=== PATIENT | male | born 1970 | race Caucasian/White ===

== ENCOUNTER 2016-08-04 01:41 | Emergency (ER) | payer MEDICAID ==
[2016-08-04] MEDS ORDERED: OLANZapine 10 MG/2 ML VIAL IM ONE ×4 (01:59→07:46)
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
[2016-08-04 02:52] LABS: % IMMATURE GRANULYOCYTES 0.3 % (0.0-1.1); ABSOLUTE IMMATURE GRANULOCYTES 0.03 10^3/uL (0.00-0.10); ADD DIFF? NO; ADD MORPH? NO; ANION GAP 13 mEq/L (8-16); ATYPICAL LYMPHOCYTE FLAG 10 (0-99); CALCIUM 9.9 mg/dL (8.5-10.4); CARBON DIOXIDE 20 mEq/l (22-31); CHLORIDE 108 mEq/L (97-110); CREATININE 0.9 mg/dL (0.7-1.3); ETHANOL SERUM < 10 mg/dL (0-10); FRAGMENT RBC FLAG 0 (0-99); GLOMERULAR FILTRATION RATE > 60; GLUCOSE 105 mg/dL (70-100); HEMATOCRIT 46.1 % (40.0-51.0); LEFT SHIFT FLG 0 (0-99); LIPEMIA HEMOLYSIS FLAG 90 (0-99); MEAN CELL HEMOGLOBIN 30.9 pg (27.9-34.1); MEAN CELL HEMOGLOBIN CONCENTR. 34.7 g/dL (32.4-36.7); MEAN PLATELET VOLUME 10.6 fL (8.7-11.7); PLATELET COUNT 238 10^3/uL (150-400); POTASSIUM 4.5 mEq/L (3.5-5.2); RED BLOOD CELL COUNT 5.18 10^6/uL (4.40-6.38); RED CELL DISTRIBUTION WIDTH 13.1 % (11.5-15.2); SODIUM 141 mEq/L (134-144)
[2016-08-04 02:54] LABS: ADD SCAN? NO; PLATELET CLUMPS FLAG 10 (0-99)
[2016-08-04] MEDS ORDERED: LORazepam 2 MG/ML INJ IM ONE (12:41)
[2016-08-04] MEDS ORDERED: LORazepam 1 MG TAB ONE (21:32)
[2016-08-04] MEDS ORDERED: LORazepam 1 MG TAB PO ONE (21:47)
[2016-08-05] MEDS ORDERED: OLANZapine DISINTEGR 10 MG TAB ONE (07:04)
[2016-08-05] MEDS ORDERED: OLANZapine DISINTEGR 10 MG TAB PO ONE (07:05)
[2016-08-05] MEDS ORDERED: CEPACOL LOZENGE PO ONE ×2 (09:09→09:13)
[2016-08-05] MEDS ORDERED: LORazepam 1 MG TAB ONE (10:37)
[2016-08-05] MEDS ORDERED: LORazepam 1 MG TAB PO ONE (10:41)
[2016-08-05 10:43] VITALS: BP 165/108; PULSE 110; RESP 20; TEMP 98.2; O2SAT 99
== END 2016-08-05 10:43 ==
DX: F31.2 Bipolar disorder, current episode manic severe with psychotic features (principal)
CPT/HCPCS: 80305; G0480; J2060

== ENCOUNTER 2016-10-01 23:43 | Emergency (ER) | payer MEDICAID ==
--- NOTE | 2016-10-01 23:51 | EDPHY ---
H & P Stated Complaint: psych eval, clearance for [facility] [employer] Source: Patient - Personal History Current Tetanus/Diphtheria Vaccine: Unsure Current Tetanus Diphtheria and Acellular Pertussis (TDAP): Unsure - Medical/Surgical History Hx Asthma: No Hx Chronic Respiratory Disease: No Hx Diabetes: No Hx Cardiac Disease: No Hx Renal Disease: No Hx Cirrhosis: No Hx Alcoholism: No Hx HIV/AIDS: No Hx Splenectomy or Spleen Trauma: No Other PMH: bipolar disorder, hep C - Social History Smoking Status: Never smoked HPI/ROS: HPI CHIEF COMPLAINT: Paranoia HISTORY OF PRESENT ILLNESS: This patient 45-year-old male significant past medical history for bipolar disorder, presents emergency room after states that he want to get into the [employer]. Made Contact with police, states he wanted to go to [facility]. He states the pictures on the canales were bothering him. States he sees [place]. Patient presents by police he is not on M1 hold. He states the people are following him. Denies wanting to hurt himself or anybody else. States he is compliant with his medication. Patient denies wanting to hurt himself or anybody else. Past Medical History: Bipolar disorder Past Surgical History: No recent surgical history Social History: Denies daily use of drugs alcohol tobacco products lives at [facility] Family History: Noncontributory ROS REVIEW OF SYSTEMS: A comprehensive 10 point review of systems is otherwise negative aside from elements mentioned in the history of present illness. Exam Constitutional triage nursing summary reviewed, vital signs reviewed, awake/ alert. Eyes normal conjunctivae and sclera, EOMI, PERRLA. HENT normal inspection, atraumatic, moist mucus membranes, no epistaxis, neck supple/ no meningismus, no raccoon eyes. Respiratory clear to auscultation bilaterally, normal breath sounds, no respiratory distress, no wheezing. Cardiovascular rate normal, regular rhythm, no murmur, no edema, distal pulses normal. Gastrointestinal soft, non-tender, no rebound, no guarding, normal bowel sounds, no distension, no pulsatile mass. Genitourinary no CVA tenderness. Musculoskeletal no midline vertebral tenderness, full range of motion, no calf swelling, no tenderness of extremities, no meningismus, good pulses, neurovascularly intact. Skin pink, warm, & dry, no rash, skin atraumatic. Neurologic awake, alert and oriented x 3, AAOx3, moves all 4 extremities equally, motor intact, sensory intact, CN II-XII intact, normal cerebellar, normal vision, normal speech. Psychiatric paranoid, acutely psychotic Heme/Lymph/Immune no lymphadenopathy. Differential Diagnosis: Includes but is not limited to in a particular order, decompensation of bipolar disorder, acute wendy, acute psychosis Medical Decision Making: Plan for this patient blood draw for medical clearance. He is Voluntary and would like to go to [facility]. . 10 mg of Zyprexa as been ordered for acute psychosis. Check lithium level. Re-evaluation: 0137AM: This patient is sleepy. Unable to be fully evaluated as he keeps falling asleep during evaluation. Patient need re-evaluation this morning. He will sleep as he had 10 mg of Zyprexa at this time for acute psychosis. 0641AM: Patient slept most of the evening due to Zyprexa. Still need mental health evaluation. Patient, at this time. Patient signed over to Dr. Tolentino at 7am shift change. (Alan Herrera) Constitutional: Initial Vital Signs Temperature (C) 36.8 C 10/01/16 23:45 Heart Rate 99 10/01/16 23:45 Respiratory Rate 20 10/01/16 23:45 Blood Pressure 132/79 H 10/01/16 23:45 O2 Sat (%) 96 10/01/16 23:45 O2 Delivery Mode Room Air Allergies/Adverse Reactions: No Known Allergies Allergy (Unverified 08/04/16 02:16) Home Medications: Medication Instructions Recorded Multivitamins [Multivitamin (*)] 1 each PO DAILY 09/14/13 [place]-3 Fatty Acids [Fish Oil 1000 1,000 mg PO DAILY 09/14/13 mg (*)] ARIPIPRAZOLE [Abilify 30mg] 30 mg PO DAILY 10/01/16 [place] Carbonate ER [Eskalith Cr 900 mg PO BID 10/02/16 450 mg (*)] Medical Decision Making Other Provider: I assumed care of the patient at 3:30 p.m. pending psychiatric evaluation. ( Torrey Diallo) I assumed care of this patient from Dr. Herrera at 7:00 a.m.. On my evaluation he is eating breakfast. He remains somewhat sleepy. He will have a an evaluation at 8:00 a.m. by [facility]. Patient placed on a 72 hour mental health hold (gravely disabled) at 10:15 a.m. Patient's usual medications of lithium and Abilify were started. Patient's care was assumed by Dr. [place] Diallo at 3:30 p.m.. We are in the process of looking for placement. (Sheree Tolentino) Care assumed 700 on 10/03; plan for psych placement. Signed out to [facility] at 1500 with placement pending. (Geoffrey Briggs) - Data Points Laboratory Results: Laboratory Results 10/02/16 00:15 10/02/16 00:15 Medications Given: Discontinued Medications Olanzapine (Olanzapine) 10 mg PO ONCE ONE Stop: 10/01/16 23:57 Last Admin: 10/02/16 00:20 Dose: Not Given Olanzapine (Zyprexa Zydis) 10 mg PO EDNOW ONE Stop: 10/02/16 00:10 Last Admin: 10/02/16 00:09 Dose: 10 mg Departure - Departure Disposition: Other Psych, Not [place] Clinical Impression: Bipolar disorder Qualifiers: Active/Remission status: currently active Current bipolar episode type: manic Current episode severity: mild Qualified Code(s): F31.11 - Bipolar disorder, current episode manic without psychotic features, mild Condition: Good Instructions: Bipolar Disorder (ED) Referrals: NONE *PRIMARY CARE P,. [Primary Care Provider] - As per Instructions Carole Davis MD [[facility]] - As per Instructions
[2016-10-01] MEDS ORDERED: OLANZapine 10 MG TAB PO ONE (23:56)
[2016-10-02] MEDS ORDERED: OLANZapine DISINTEGR 10 MG TAB ONE
[2016-10-02] MEDS ORDERED: OLANZapine DISINTEGR 10 MG TAB PO ONE (00:09)
[2016-10-02 00:21] LABS: % IMMATURE GRANULYOCYTES 0.3 % (0.0-1.1); ABSOLUTE IMMATURE GRANULOCYTES 0.03 10^3/uL (0.00-0.10); ADD DIFF? NO; ADD MORPH? NO; ADD SCAN? NO; ATYPICAL LYMPHOCYTE FLAG 0 (0-99); FRAGMENT RBC FLAG 0 (0-99); HEMATOCRIT 42.4 % (40.0-51.0); HEMOGLOBIN 14.3 g/dL (13.7-17.5); LEFT SHIFT FLG 0 (0-99); LIPEMIA HEMOLYSIS FLAG 80 (0-99); MEAN CELL HEMOGLOBIN 31.6 pg (27.9-34.1); MEAN CELL HEMOGLOBIN CONCENTR. 33.7 g/dL (32.4-36.7); MEAN CELL VOLUME 93.8 fL (81.5-99.8); MEAN PLATELET VOLUME 8.7 fL (8.7-11.7); PLATELET CLUMPS FLAG 0 (0-99); PLATELET COUNT 257 10^3/uL (150-400); RED BLOOD CELL COUNT 4.52 10^6/uL (4.40-6.38); RED CELL DISTRIBUTION WIDTH 14.1 % (11.5-15.2)
[2016-10-02 00:43] LABS: ANION GAP 11 mEq/L (8-16); CARBON DIOXIDE 22 mEq/l (22-31); CHLORIDE 108 mEq/L (97-110); CREATININE 0.9 mg/dL (0.7-1.3); ETHANOL SERUM < 10 mg/dL (0-10); GLOMERULAR FILTRATION RATE > 60; GLUCOSE 96 mg/dL (70-100); LITHIUM 0.5 mEq/L (0.6-1.2); SALICYLATE < 1.0 mg/dL (2.0-20.0); SODIUM 141 mEq/L (134-144)
[2016-10-02] MEDS: ARIPiprazole 10 MG TAB PO SCH (10:59)
[2016-10-02] MEDS: LITHIUM CARBONATE ER 450 MG TAB PO SCH ×2 (11:00→21:22)
[2016-10-03] MEDS: ARIPiprazole 10 MG TAB PO SCH (09:05)
[2016-10-03] MEDS: LITHIUM CARBONATE ER 450 MG TAB PO SCH (09:05)
[2016-10-03 19:41] VITALS: BP 135/82; PULSE 81; RESP 17; TEMP 98.8; O2SAT 96
== END 2016-10-03 19:40 ==
DX: F31.11 Bipolar disorder, current episode manic without psychotic features, mild (principal)
CPT/HCPCS: 80305; G0480

== ENCOUNTER 2017-01-09 13:12 | Inpatient (IN) | payer MEDICAID ==
[2017-01-09 14:22] LABS: % IMMATURE GRANULYOCYTES 0.2 % (0.0-1.1); ABSOLUTE IMMATURE GRANULOCYTES 0.01 10^3/uL (0.00-0.10); ADD DIFF? NO; ADD MORPH? NO; ADD SCAN? NO; ATYPICAL LYMPHOCYTE FLAG 10 (0-99); FRAGMENT RBC FLAG 0 (0-99); HEMATOCRIT 41.7 % (40.0-51.0); HEMOGLOBIN 13.9 g/dL (13.7-17.5); LEFT SHIFT FLG 0 (0-99); LIPEMIA HEMOLYSIS FLAG 80 (0-99); MEAN CELL HEMOGLOBIN 30.8 pg (27.9-34.1); MEAN CELL HEMOGLOBIN CONCENTR. 33.3 g/dL (32.4-36.7); MEAN CELL VOLUME 92.5 fL (81.5-99.8); MEAN PLATELET VOLUME 9.2 fL (8.7-11.7); PLATELET CLUMPS FLAG 0 (0-99); PLATELET COUNT 272 10^3/uL (150-400); RED BLOOD CELL COUNT 4.51 10^6/uL (4.40-6.38); RED CELL DISTRIBUTION WIDTH 12.8 % (11.5-15.2)
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
[2017-01-09 14:40] LABS: ANION GAP 11 mEq/L (8-16); CALCIUM 9.5 mg/dL (8.5-10.4); CARBON DIOXIDE 28 mEq/l (22-31); CHLORIDE 105 mEq/L (97-110); CREATININE 0.8 mg/dL (0.7-1.3); ETHANOL SERUM < 10 mg/dL (0-10); GLOMERULAR FILTRATION RATE > 60; GLUCOSE 77 mg/dL (70-100); POTASSIUM 4.2 mEq/L (3.5-5.2); SODIUM 144 mEq/L (134-144)
[2017-01-09] MEDS ORDERED: KETOROLAC 30 MG/1 ML SDV IVP PRN (16:36)
[2017-01-09] MEDS ORDERED: ONDANSETRON 4 MG/2 ML VIAL IVP PRN (16:36)
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
[2017-01-09] MEDS ORDERED: BACITRACIN OINTMENT 1 PACKET TP ONE (17:46)
[2017-01-09] MEDS: LITHIUM CARBONATE ER 450 MG TAB PO SCH (20:18)
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
[2017-01-10 06:11] LABS: % IMMATURE GRANULYOCYTES 0.3 % (0.0-1.1); ABSOLUTE IMMATURE GRANULOCYTES 0.02 10^3/uL (0.00-0.10); ADD DIFF? NO; ADD MORPH? NO; ADD SCAN? NO; ATYPICAL LYMPHOCYTE FLAG 10 (0-99); FRAGMENT RBC FLAG 0 (0-99); HEMATOCRIT 40.2 % (40.0-51.0); HEMOGLOBIN 13.6 g/dL (13.7-17.5); LEFT SHIFT FLG 0 (0-99); LIPEMIA HEMOLYSIS FLAG 90 (0-99); MEAN CELL HEMOGLOBIN 30.9 pg (27.9-34.1); MEAN CELL HEMOGLOBIN CONCENTR. 33.8 g/dL (32.4-36.7); MEAN CELL VOLUME 91.4 fL (81.5-99.8); MEAN PLATELET VOLUME 8.9 fL (8.7-11.7); PLATELET CLUMPS FLAG 0 (0-99); PLATELET COUNT 245 10^3/uL (150-400); RED CELL DISTRIBUTION WIDTH 12.5 % (11.5-15.2)
[2017-01-10 06:20] LABS: INR 0.99 (0.83-1.16)
[2017-01-10 06:28] LABS: ALANINE AMINOTRANSFERASE 49 IU/L (21-72); ALBUMIN 3.7 g/dL (3.5-5.0); ALKALINE PHOSPHATASE 52 IU/L (38-126); ASPARTATE AMINOTRANSFERASE 20 IU/L (17-59); BILIRUBIN,TOTAL 0.3 mg/dL (0.1-1.4); BILIRUBIN-CONJUGATED 0.2 mg/dL (0.0-0.5); BILIRUBIN-UNCONJUGATED 0.1 mg/dL (0.0-1.1); LITHIUM 0.4 mEq/L (0.6-1.2); TOTAL PROTEIN 6.7 g/dL (6.3-8.2)
--- NOTE | 2017-01-10 09:28 | SOAPPROG ---
SOAP Progress Note Assessment/Plan: Assessment: Right ankle Avulsion distal fibula fracture & Cellulitis Plan: [place] for ambulation WBAT RLE in [place] Pain med prn Antibiotics per primary team Ortho Stable Subjective: Patient is comfortable in bed. Right ankle erythema is improving slightly. Minimal pain in the right ankle lateral malleolus. Objective: Vital Signs Temp Pulse Resp BP Pulse Ox 36.7 C 92 17 154/87 H 95 01/10/17 00:00 01/10/17 00:00 01/10/17 00:00 01/10/17 00:00 01/10/17 00:00 Laboratory Results 01/10/17 06:05 01/09/17 01/10/17 01/11/17 05:59 05:59 05:59 Intake Total 2450 Output Total 4725 Balance -2275 PT 13.0 SEC (12.0-15.0) 01/10/17 06:05 INR 0.99 (0.83-1.16) 01/10/17 06:05 Physical exam of the Right ankle: swelling and erythema throughout the right foot/ankle and up the calf is slightly improving. Pain to palpation over the lateral malleolus. Normal sensation to light touch in the RLE. Distal pulse present in the RLE. ICD10 Worksheet Patient Problems: Problems Problem Status Onset Avulsion fracture of ankle Acute Bipolar 1 disorder Acute Cellulitis of right ankle Acute
[2017-01-10] MEDS: ENOXAPARIN 40 MG/0.4 ML SYR SC SCH (09:35)
[2017-01-10] MEDS: LITHIUM CARBONATE ER 450 MG TAB PO SCH ×2 (09:35→19:30)
[2017-01-10] MEDS: ARIPiprazole 10 MG TAB PO SCH (09:35)
--- NOTE | 2017-01-10 10:39 | WOCRNPDOC ---
WOCRN Advanced Assessment Note - Skin Integrity Problem, Advanced Assess Right Lateral Distal Ankle Dressing Type: Open to Air Exudate Amount: None Gabi Wound Tissue: Erythema, Contused Wound Bed Color: [place], Yellow, [place] Wound Bed Constitution: Smooth Tissue (50%), Adhered Slough (50%) Wound Edges: Attached Site Measurement - Head-to-Toe Length X Width X Depth (cm): 3.5x2x0.2 Skin Integrity Problem Comment: Two wounds that are almost connected in the middle. The measurement is for both wounds together. They are both dry and somewhat stalled in their proliferation phase. Wound care will round again next week. Bilateral Pedal Foot Dressing Type: Open to Air Skin Integrity Problem Comment: Two old blister sites that are mostly healed and epithelized. One below third toe on left foot, one below 1st toe on right foot. Both on metatarsal heads. No need for wound care. Wound care will not follow. Report to Fanta RODRIGES.
--- NOTE | 2017-01-10 11:57 | GCON ---
[f rep st] CONSULTATION LICENSING SERVICES CLERK CONSULTATION REASON FOR ADMISSION: Cellulitis, bipolar disorder. HISTORY OF PRESENT ILLNESS: The patient is a 46-year-old, white male with a past medical history of bipolar disorder, and hepatitis C. He has been off his medications for 2 weeks and presented to [facility] emergency room complaining of hearing voices as well as paranoia. He apparently sprained his ankl e 1 week prior and the morning of admission, he noticed that this began having increasing swell and beginning chills. He was admitted with a diagnosis of cellulitis as well as poorly controlled bipol ar disorder and . He states he feels somewhat better today, though he did not sleep well l ast night secondary to hearing voices. His right ankle is painful to move. He denies any chest deb n, pleuritic-type chest pain or angina equivalent. No fever or night sweats. He is about to work w [employer]. PAST MEDICAL HISTORY: Significant for poorly controlled bipolar disorder and hepatitis C. ALLERGIES: None known to medications. SOCIAL HISTORY: No history of tobacco use. He denies any alcohol use. He is homeless and currentl y unemployed. PHYSICAL EXAM: VITAL SIGNS: Blood pressure is 154/87, pulse 109, respirations are 17, temperature 36.7. GENERAL: He is a well-developed, well-nourished, 46-year-old, white male who is currently re sting comfortably in no acute distress. HEENT: Eyes are JONATHAN, EOMI. Throat shows no erythema or t onsillar hypertrophy. NECK: Supple. No cervical adenopathy. HEART: Regular rate and rhythm with out murmurs, rubs, or gallops. LUNGS: Clear to auscultation. No wheeze or rhonchi. ABDOMEN: Sof t, nontender. Bowel sounds are present in all 4 quadrants. EXTREMITIES: No clubbing, cyanosis. H is right ankle is splinted and bandaged. LABORATORIES: White count 6.1, hemoglobin 13, hematocrit 40, platelet count 245. Sodium is 144, po tassium 4.2, chloride 105, CO2 28, BUN 11, creatinine 0.8, glucose 77, AST is 20, ALT is 49. Urine drug screen is negative. IMPRESSION: 1. Poorly controlled bipolar disorder. 2. Acute tib-fib avulsion fracture. 3. Cellulitis. RECOMMENDATIONS: 1. Agree with antibiotic coverage. 2. Agree with M1 hold. 3. The patient has been seen by Orthopedic surgery, which we have recommend a Cam boot for ambulati on. 4. DVT and PE prophylaxis. 5. Stress ulcer prophylaxis. 6. Physical therapy and occupational therapy. /[id number]/MODL
[2017-01-10] MEDS: CEPHALEXIN 500 MG CAP PO SCH ×2 (12:33→17:12)
--- NOTE | 2017-01-10 17:42 | HOSPPROG ---
Hospitalist Progress Note Assessment/Plan: assessment: 46-year-old male presents with acute D stabilization of his bipolar disease as well as concomitant cellulitis and fibula fracture Plan: 1. cellulitis. Right lower extremity, secondary to poor self care in the setting of the stabilized psychiatric illness, required IV Ancef - area is significantly improving, white blood cell count normal, afebrile, adjust to Keflex at this time for total of 7 days treatment 2. fibular fracture. Acute distal tip avulsion fracture on x-ray, ultrasound demonstrating no DVT, evaluated by Orthopedics, recommendation for weight- bearing as tolerated with a Cam boot when out of bed - recommend outpatient follow-up with Dr. Vang - yamileth kay as needed 3. bipolar disease. Acute decompensation, secondary to medication non adherence , patient has a history of court-ordered medication administration - patient reports that he has recently been on a "walk about", at which time he was not taking his medications - patient denies any suicidal ideation or homicidal ideation, but he does demonstrate a delusional thinking and active psychosis, believing that there are people speaking through his body -I believe he remains gravely disabled, currently on M1 hold -patient has been medically cleared and I contacted [facility] to facilitate EPS evaluation, facilitating inpatient psychiatric stabilization if deemed appropriate -patient can be discharged to inpatient psychiatric facility once 1 is available -resume the patient's medications including Abilify and lithium, patient is amenable to taking them Diet. Regular Prophylaxis. High risk, Lovenox 40 Code. Full Disposition. Anticipated discharge uncertain this time, anticipated length stay is greater than 48 hours warranting inpatient admission status for acutely decompensated bipolar disease rendering the patient gravely disabled and unable to care for self, with comorbid cellulitis and fibular fractures, resulting in hospitalization, currently does not have safe discharge plan or lower level of care available, Requiring upgraded to inpatient admission status. Subjective: Patient reports that he feels like people are speaking through him, counseled the patient that he requires inpatient Behavioral Health stabilization , and patient is cooperative Objective: Vital Signs Temp Pulse Resp BP Pulse Ox 36.8 C 69 14 147/87 H 96 01/10/17 16:00 01/10/17 16:00 01/10/17 16:00 01/10/17 16:00 01/10/17 16:00 Laboratory Results 01/10/17 06:05 01/09/17 01/10/17 01/11/17 05:59 05:59 05:59 Intake Total 2450 1560 Output Total 4760 Balance -2275 1560 PT 13.0 SEC (12.0-15.0) 01/10/17 06:05 INR 0.99 (0.83-1.16) 01/10/17 06:05 - Time Spent With Patient Time Spent with Patient: greater than 25 minutes Time Spent with Patient: Greater than 25 minutes spent on this patients care, greater than 50% of time spent counseling, educating, and coordinating care regarding the above mentioned plan. - Physical Exam Constitutional: no apparent distress, appears nourished, not in pain Skin: other ( mild blanching erythema circumferentially around the ankle, without any open excoriations) Musculoskeletal: other ( mild effusion along the lateral aspect of the right ankle with tenderness to palpation) Neurologic: AAOx3, sensation intact bilaterally Psychiatric: not anxious, other ( nonlinear thought process, delusions, no suicidal ideation or homicidal ideation), No agitated ICD10 Worksheet Patient Problems: Problems Problem Status Onset Avulsion fracture of ankle Acute Bipolar 1 disorder Acute Cellulitis of right ankle Acute
[2017-01-11 00:49] VITALS: RESP 18
[2017-01-11] MEDS: CEPHALEXIN 500 MG CAP PO SCH ×4 (01:00→17:38)
[2017-01-11] MEDS: ARIPiprazole 10 MG TAB PO SCH (08:01)
[2017-01-11] MEDS: LITHIUM CARBONATE ER 450 MG TAB PO SCH ×2 (08:03→21:48)
[2017-01-11] MEDS: ENOXAPARIN 40 MG/0.4 ML SYR SC SCH (08:04)
[2017-01-11] MEDS ORDERED: OMEGA-3 FATTY ACIDS 1,000 MG CAP PO SCH (09:00)
[2017-01-11] MEDS ORDERED: MULTIVITAMINS 1 EACH TAB PO SCH (09:00)
--- NOTE | 2017-01-11 17:05 | HOSPPROG ---
Hospitalist Progress Note Assessment/Plan: assessment: 46-year-old male presents with acute D stabilization of his bipolar disease as well as concomitant cellulitis and fibula fracture Plan: 1. cellulitis. Right lower extremity, secondary to poor self care in the setting of the stabilized psychiatric illness, required IV Ancef - area continues to improve, adjusted to Keflex for total of 7 days treatment, D #2/ 2. fibular fracture. Acute distal tip avulsion fracture on x-ray, ultrasound demonstrating no DVT, evaluated by Orthopedics, recommendation for weight- bearing as tolerated with a Cam boot when out of bed - recommend outpatient follow-up with Dr. Vang - pain mgmt as needed 3. bipolar disease. Acute decompensation, secondary to medication non adherence , patient has a history of court-ordered medication administration - patient reports that he has recently been on a "walk about", at which time he was not taking his medications - patient denies any suicidal ideation or homicidal ideation, but he does demonstrate a delusional thinking and active psychosis, believing that there are people speaking through his body -I believe he remains gravely disabled, currently on M1 hold -patient's delusional thinking continues, would like to contact the FBI, he believes he knows who was trying to harm him -patient has been medically cleared and we are awaiting an available behavioral health bed Diet. Regular Prophylaxis. High risk, Lovenox 40 Code. Full Disposition. Anticipated discharge uncertain this time, requires inpt [facility] bed Subjective: patient reports that he needs a cell phone cleat layer so he can contact the FBI Objective: Vital Signs Temp Pulse Resp BP Pulse Ox 36.4 C 85 18 140/84 H 96 01/11/17 08:00 01/11/17 08:00 01/11/17 08:00 01/11/17 08:00 01/11/17 08:00 PT 13.0 SEC (12.0-15.0) 01/10/17 06:05 INR 0.99 (0.83-1.16) 01/10/17 06:05 - Physical Exam Constitutional: no apparent distress, appears nourished, not in pain, No uncomfortable Skin: other (, no knee effusion improved erythema around the right ankle, skin remains somewhat warm, mildly tender, no induration) Musculoskeletal: other ( full range of motion right ankle, with mild pain, lateral malleoli effusion, full range of motion right knee without any pain) Neurologic: AAOx3, sensation intact bilaterally, No weakness Psychiatric: not anxious, other ( delusional thinking, nonlinear thought process , cooperative and follows commands, redirectable), No agitated ICD10 Worksheet Patient Problems: Problems Problem Status Onset Cellulitis of right ankle Acute Avulsion fracture of ankle Acute Bipolar 1 disorder Acute
--- NOTE | 2017-01-11 17:33 | ASMTCMCOM ---
CM Note CM Note Notes: Patient's father Loi faxed us some papers to have his son sign re: power of workers compensation attorney. Father was informed patient is not decisional currently and is awaiting placement in a behavioral health unit. (possibly [facility]) CM agreed to send the papers with patient when he goes to the next facility so when he is decisional, he can sign them. CM will also contact the facility to let them know papers are included in the transfer summaries and request they assist when patient becomes decisional. CM will need to contact patient's father to let him know what facility his son gets placed in. CM will follow. Date Signed: 01/11/2017 05:33 PM Electronically Signed By:Graciela Perez
[2017-01-11] MEDS: ACETAMINOPHEN 325 MG TAB PO PRN (19:18)
[2017-01-12 00:19] VITALS: BP 143/93; PULSE 79; TEMP 97.9; O2SAT 95
[2017-01-12] MEDS: CEPHALEXIN 500 MG CAP PO SCH (00:19)
[2017-01-12] MEDS: ACETAMINOPHEN 325 MG TAB PO PRN (00:19)
--- NOTE | 2017-01-12 16:47 | PDDCSUM ---
Discharge Summary Discharge Summary: DISCHARGE SUMMARY FOLLOW-UP ITEMS: Outpatient orthopedics follow-up appointment DATE OF ADMISSION: 12/31 01/18 DATE OF DISCHARGE: 01/12/2017 DISCHARGE DIAGNOSES: 1. Right lower extremity cellulitis 2. Acute distal tip avulsion fracture fibula 3. Acute decompensated bipolar disease CONSULTATIONS: TLC, orthopedics PROCEDURES / IMAGING: X-ray of the right lower extremity CHIEF COMPLAINT: Acute leg pain PHYSICAL EXAM ON DISCHARGE: Systolic blood pressure 143, heart rate 79, afebrile, satting well on room air HOSPITAL COURSE BY PROBLEM: 1. Right lower extremity cellulitis. Secondary to poor self care in the setting of D stabilize psychiatric illness, the patient had erythema circumferentially around his right lower extremity which was confluent and blanchable. It is suspected that he injured the area while he was on his walk about. He initially received IV Ancef and the area substantially improved. He was transitioned to oral Keflex and should be continued on 7 days total. He received 2 total days here at this hospital, should have 5 subsequent days at [facility]. 2. Acute fibular fracture. The distal tip avulsion fracture on x-ray, ultrasound demonstrating no DVT, evaluated by Orthopedics and they recommended weight-bearing as tolerated with Cam boot when out of bed. The patient should follow up with Dr. De Leon and this was provided his discharge instructions. 3. Acutely decompensated bipolar disease. Patient was hospitalized secondary to grave disability from his decompensated bipolar disease, with active delusional thinking and psychosis. Patient was evaluated by [facility], placed on M1 hold, and taken to inpatient Behavioral Health on 01/12 for further stabilization. His believe that patient's destabilization had occurred in the setting of himself discontinuing his medications during his walk about. He is currently on court-ordered medications. DISCHARGE MEDICATIONS: Please see official discharge medication reconciliation sheet in chart , Keflex 500 mg 4 times daily, continue other home medications. DISCHARGE INSTRUCTIONS: Please follow up with orthopedics in 7-10 days. Please continue Cam boot when out of bed
== END 2017-01-12 03:31 | DRG 885 ==
LOC: EDUNIT# → F2N 17:10 → OBSVTOIN 01-10 17:41 → F2N 01-11 04:30
PROVIDERS: ADMIT Internal Medicine; ATTEND Internal Medicine
DX: F31.9 Bipolar disorder, unspecified (principal); L03.115 Cellulitis of right lower limb; S82.401A Unspecified fracture of shaft of right fibula, initial encounter for closed fracture; X58.XXXA Exposure to other specified factors, initial encounter; Z91.14 Patient's other noncompliance with medication regimen; F17.210 Nicotine dependence, cigarettes, uncomplicated; B19.20 Unspecified viral hepatitis C without hepatic coma; Z59.0 Homelessness
CPT/HCPCS: 80305; 97161-GP; 97165-GO; G0378; G0480; J0690; J1650

== ENCOUNTER 2017-01-12 04:00 | Inpatient (IN) | payer MEDICAID ==
[2017-01-12] MEDS ORDERED: ACETAMINOPHEN 325 MG TAB ONE (04:25)
[2017-01-12] MEDS ORDERED: LORazepam 0.5 MG TAB PO PRN (04:31)
[2017-01-12] MEDS ORDERED: NICOTINE POLACRILEX 2 MG GUM B PRN (04:31)
[2017-01-12] MEDS ORDERED: MAG HYDROX/AL HYDROX/SIMETH 30 ML UDCUP PO PRN (04:31)
[2017-01-12] MEDS ORDERED: MAGNESIUM HYDROXIDE 30 ML UDCUP PO PRN (04:31)
[2017-01-12] MEDS: ACETAMINOPHEN 325 MG TAB PO PRN ×2 (04:35→10:18)
[2017-01-12] MEDS: CEPHALEXIN 500 MG CAP PO SCH ×4 (05:58→21:11)
[2017-01-12] MEDS: ARIPiprazole 10 MG TAB PO SCH (10:11)
[2017-01-12] MEDS: MULTIVITAMINS 1 EACH TAB PO SCH (10:12)
[2017-01-12] MEDS: OMEGA-3 FATTY ACIDS 1,000 MG CAP PO SCH (10:12)
[2017-01-12] MEDS: LITHIUM CARBONATE ER 450 MG TAB PO SCH ×2 (10:16→21:11)
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
--- NOTE | 2017-01-12 17:00 | BCON ---
[f rep st] BEHAVIORAL HEALTH CONSULTATION INTERNAL MEDICINE CONSULTATION DATE OF CONSULTATION: 01/12/2017 REFERRING PHYSICIAN: Shyam Mir MD REASON FOR REFERRAL: Medical clearance for inpatient behavioral health stay. HISTORY OF PRESENT ILLNESS: This patient presented to [facility] Emergency Department on 01/10/2017 with redness and swelling to the right lateral ankle. He was noted in the emergency department to be manic, and he had been noncompliant with his psychiatric medications. He also was found to have a cellulitis and an avulsion fracture of the tip of the right fibula. He was admitted to [facility] for treatment of the infection, and there was an orthopedic consult. He was stabilized and transferred to [facility] for further psychiatric care. He reports he feels sleepy. He is otherwise without any acute complaints. PAST MEDICAL HISTORY: 1. Hepatitis C, status post treatment with ribavirin in 2002. 2. Bipolar disorder. PAST SURGICAL HISTORY: He has not had surgery in the past. MEDICATIONS: He was prescribed aripiprazole 30 mg p.o. daily and lithium 900 mg p.o. twice daily. ALLERGIES: There are no known drug allergies. SOCIAL HISTORY: He is homeless. He has been traveling extensively based on his delusions. He is a smoker and he recently left [facility] from [facility]. FAMILY HISTORY: Noncontributory. REVIEW OF SYSTEMS: He denies pain, cough, dyspnea, fevers, and chills. Swelling and redness have resolved on his right ankle. Otherwise, a 10-point review of systems is negative. PHYSICAL EXAMINATION: VITAL SIGNS: Blood pressure is 137/92, heart rate is 77 , respiratory rate is 14, oxygen saturation is 95% on room air, temperature is 36.8 degrees centigrade. His weight is 90.7 kg for a body mass index of 30.4. GENERAL: This is a well-nourished, well-developed, overweight-appearing man lying in bed, easily awakened, cooperative, and in no acute distress. HEENT: Extraocular movements are intact. Pupils are equal, round, and reactive to light. Mucous membranes are moist. Dentition is in good condition. He has a moderately crowded airway, Mallampati Class III. NECK: Supple. HEART: Regular rate and rhythm with no murmurs, rubs, or gallops. LUNGS: Clear to auscultation bilaterally. ABDOMEN: Soft, nontender, nondistended with normoactive bowel sounds. EXTREMITIES: There is no cyanosis, clubbing, or edema. SKIN: Left lateral ankle has an approximately 2 x 3 cm ulceration with thick white slough but no erythema. Dorsalis pedis pulses 2+. LABORATORY STUDIES: From his hospitalization, CBC was overall within normal limits. He had a very slightly low hemoglobin on 01/10/2017 at 13.6. Coagulation studies revealed a normal PT and INR. Serum chemistry revealed normal liver function, renal function, and electrolytes. Ammonia level was not elevated. TSH was normal at 2.4. Toxicology screen in the serum was negative for ethyl alcohol. Dales level was subtherapeutic at 0.4. Toxicology screen in the urine was negative for any substances of abuse. ASSESSMENT/RECOMMENDATIONS: 1. Mental health issues, pending further evaluation and management per Psychiatry and the mental health team. 2. Cellulitis of the right ankle. He is to continue cephalexin 500 mg q.i.d. through 01/17/2017. Wound care orders are to change the dressing every other day and p.r.n., Silvasorb to the ulceration and cover with Allevyn. 3. Right distal fibula avulsion fracture. Continue the CAM boot when out of bed. He is allowed full weightbearing, and he should follow up with Orthopedics , Jade Vang PA-C, in Dr. De Leon's clinic in approximately 6-9 days. 4. Tobacco dependence. Advised smoking cessation. I see no medical contraindications to this patient's continued stay on the inpatient behavioral health unit or to any psychiatric medications or procedures. Thank you very much for including me in the care of this patient, and please do not hesitate to contact me or the hospitalists service should there be need for further medical evaluation. /[id number]/MODL MTDD
[2017-01-13] MEDS: CEPHALEXIN 500 MG CAP PO SCH ×4 (06:00→20:41)
[2017-01-13] MEDS: LITHIUM CARBONATE ER 450 MG TAB PO SCH (11:00)
[2017-01-13] MEDS: ARIPiprazole 10 MG TAB PO SCH (11:00)
[2017-01-13] MEDS: OMEGA-3 FATTY ACIDS 1,000 MG CAP PO SCH (11:00)
[2017-01-13] MEDS: MULTIVITAMINS 1 EACH TAB PO SCH (11:01)
[2017-01-13] MEDS ORDERED: LITHIUM CARBONATE ER 450 MG TAB PO SCH (16:08)
--- NOTE | 2017-01-13 16:17 | SOAPPROG ---
SOAP Progress Note Assessment/Plan: Assessment: 46 yo man with h/o bipolar and multiple psych hospitalizations. He was at [facility] from 09/2016 until 12/20/2016 when he transferred to [facility]. He left [facility] on 12/27/2016 and went on a "spiritual journey" to [place] and [facility]. He was reportedly admitted to psych hospitals in [place] and [place] for brief periods and made his way back to [place]. He presented to [facility] ED on 01/11/17 with cellulitis of LE. He was given Keflex and admitted to inpatient to be stabilized on psych meds for his bipolar disorder. He was previously taking Abilify 30mg and [place] 900mg BID, but has been off them for at least 3 weeks. Though he claims he was given an Abilify Maintenna injection during one of his out of state hospitalizations. But he can't remember where or when. 01/13/17 16:11 Plan: 1. Will restart Abilify and [place] at their initial doses d/t to prolonged time patient has been off his meds. [place] level in ED was < .4 2. HENRY of Abilify is good choice given patient's h/o non-compliance. 3. Will likely need stepdown facility, like [facility] or [facility], but patient has h/o leaving these facilities. May just have to f/u with [facility] and go to homeless [facility]. CC to follow up with options next week. Subjective: Met with patient, reviewed chart and discussed with staff. Patient is pleasant, calm and cooperative. He displays no sxs of wendy. He does not have pressured speech, racing thoughts, elevated or elated mood, decreased need for sleep or increased goal-directed activity. He does present as confused and disorganized. He is poor historian and can't remember sequence of events after leaving [facility] and isn't very clear about dates and places. He does, however, say he was given Abilify Maintenna at one of the hospitals where he was admitted out of state. This was likely 3-4 weeks ago, so he could tolerate a starting PO dose of Abilify again. He was previously seeing Gisela Ronquillo at the [facility] clinic in [place], but this was likely before he went to [facility], more than 4 months ago. Patient says he is looking for "more permanent housing" than a stepdown facility. Patient says when he left [facility] he was trying to get away from "a cult that has been following me." He does not endorse paranoia at the current time. He doesn't think the cult or anyone else is trying to harm him now. He denies any AH/VH and denies any SI/HI. Objective: Vital Signs Temp Pulse Resp BP Pulse Ox 37.1 C 87 16 138/77 H 94 01/13/17 13:36 01/13/17 13:36 01/13/17 13:36 01/13/17 13:36 01/13/17 13:36 MSE: Well-groomed, appropriate attire, calm, cooperative. Affect: Euthymic Mood : "Good" TP: Tangential, disorganized, logical TC: Denies any AH/VH, no signs of paranoia or delusions, no SI/HI Insight/Judgment: Poor - Time Spent With Patient Time Spent With Patient: 25" - Pending Discharge Pending Discharge Within 24 Hours: No ICD10 Worksheet Patient Problems: Problems Problem Status Onset Bipolar I, recurrent manic episode, severe with psychotic behavior Acute Avulsion fracture of ankle Acute - ICD10 Problem Qualifiers (1) Bipolar I, recurrent manic episode, severe with psychotic behavior
[2017-01-13] MEDS: LITHIUM CARBONATE ER 300 MG TAB PO SCH (20:41)
[2017-01-14] MEDS: CEPHALEXIN 500 MG CAP PO SCH ×4 (06:07→20:35)
[2017-01-14] MEDS: ARIPiprazole 10 MG TAB PO SCH (08:31)
[2017-01-14] MEDS: LITHIUM CARBONATE ER 300 MG TAB PO SCH ×2 (08:32→20:35)
[2017-01-14] MEDS: OMEGA-3 FATTY ACIDS 1,000 MG CAP PO SCH (08:32)
[2017-01-14] MEDS: MULTIVITAMINS 1 EACH TAB PO SCH (08:32)
--- NOTE | 2017-01-14 15:06 | SOAPPROG ---
SOAP Progress Note Assessment/Plan: Assessment: 46 yo man with h/o bipolar and multiple psych hospitalizations. He was at [facility] from 09/2016 until 12/20/2016 when he transferred to [facility]. He left [facility] on 12/27/2016 and went on a "spiritual journey" to [place] and [facility]. He was reportedly admitted to psych hospitals in [place] and [place] for brief periods and made his way back to [place]. He presented to [facility] ED on 01/11/17 with cellulitis of LE. He was given Keflex and admitted to inpatient to be stabilized on psych meds for his bipolar disorder. He was previously taking Abilify 30mg and [place] 900mg BID, but has been off them for at least 3 weeks. Though he claims he was given an Abilify Maintenna injection during one of his out of state hospitalizations. But he can't remember where or when. 01/13/17 16:11 Plan: 1. Will restart Abilify and [place] at their initial doses d/t to prolonged time patient has been off his meds. [place] level in ED was < .4 2. HENRY of Abilify is good choice given patient's h/o non-compliance. 3. Will likely need stepdown facility, like [facility] or [facility], but patient has h/o leaving these facilities. May just have to f/u with [facility] and go to homeless skilled nursing. CC to follow up with options next week. 01/14/17 15:00 Plan: 1. Continue current meds. Will need to titrate back to previous outpatient doses. 2. Patient may be candidate for Abilify Maintenna 3. Will need to get re-established with [facility] providers. Subjective: Met with patient and discussed with staff. Patient reports he is feeling "way better" than when he was hospitalized at [facility] in September. He says, "I'm not hearing voices or anything." He says his mood is "dialed in." He doesn't endorse AH/VH and there are no signs of him responding to IS/ES. There's also no evidence of paranoia or delusions, though he has talked about needing to get away from a "cult" in [place]. He does not endorse feeling paranoid or worried about his safety here in [place]. He tells MD today that one of the reasons he left [facility] and [place] was to "break the cert." He didn't like being on LTC or on COM, so he left the state. He would likely do this again if he didn't like where he was living. He denies any SI/HI. Objective: Vital Signs Temp Pulse Resp BP Pulse Ox 36.6 C 84 14 140/80 H 94 01/14/17 13:54 01/14/17 13:54 01/14/17 13:54 01/14/17 13:54 01/14/17 13:54 MSE: Patient has ortho boot on left foot d/t ankle fracture. Affect: Euthymic Mood: "Way better" TP: Logical, more organized TC: Denies any AH/vH, no paranoia/delusions, no SI/HI Insight/Judgment: Poor - Time Spent With Patient Time Spent With Patient: 20" - Pending Discharge Pending Discharge Within 24 Hours: No ICD10 Worksheet Patient Problems: Problems Problem Status Onset Bipolar I, recurrent manic episode, severe with psychotic behavior Acute Avulsion fracture of ankle Acute - ICD10 Problem Qualifiers (1) Bipolar I, recurrent manic episode, severe with psychotic behavior
[2017-01-15] MEDS: CEPHALEXIN 500 MG CAP PO SCH ×4 (06:01→20:47)
[2017-01-15] MEDS: OMEGA-3 FATTY ACIDS 1,000 MG CAP PO SCH (08:42)
[2017-01-15] MEDS: ARIPiprazole 10 MG TAB PO SCH (08:42)
[2017-01-15] MEDS: LITHIUM CARBONATE ER 300 MG TAB PO SCH ×2 (08:42→20:47)
[2017-01-15] MEDS: MULTIVITAMINS 1 EACH TAB PO SCH (08:42)
--- NOTE | 2017-01-15 13:21 | SOAPPROG ---
SOAP Progress Note Assessment/Plan: Assessment: Plan: 01/15/17 13:23 Gradual improvement. CCM. Will increase lithium to 600mg BID as this is patient's previous outpatient dose. Increase Abilify to 15mg due to ongoing psychosis. Will reconsider admission dx in favor of Schizoaffective D/o. Subjective: Pt seen, discussed with staff. Reports feeling "a lot better." States he "isn' t delusional any more." Has no insight into the nature of his paranoia. Extensively recounts his previous story of being persecuted by a cult. He states, "I'm here because a cult is practicing demonology on me and I'm a victim of circumstance." He demonstrates poor insight into the impact of his delusions on his overall functioning. Compliant with meds. Notes no side effects. Objective: Vital Signs Temp Pulse Resp BP Pulse Ox 36.6 C 85 20 141/88 H 96 01/15/17 08:00 01/15/17 08:00 01/15/17 08:00 01/15/17 08:00 01/15/17 08:00 MSE: Moderately activated, coop. Affect is expansive. Mood is "really good." TP tangential at times, perseverates on delusional themes. TC reveals continued paranoid delusions, IOR's. - Time Spent With Patient Time Spent With Patient: 25" ICD10 Worksheet Patient Problems: Problems Problem Status Onset Bipolar I, recurrent manic episode, severe with psychotic behavior Acute Avulsion fracture of ankle Acute
[2017-01-16] MEDS: CEPHALEXIN 500 MG CAP PO SCH ×4 (06:02→19:55)
[2017-01-16] MEDS: OMEGA-3 FATTY ACIDS 1,000 MG CAP PO SCH (08:57)
[2017-01-16] MEDS: LITHIUM CARBONATE ER 300 MG TAB PO SCH ×2 (08:58→19:56)
[2017-01-16] MEDS: ARIPiprazole 10 MG TAB PO SCH (08:58)
[2017-01-16] MEDS: MULTIVITAMINS 1 EACH TAB PO SCH (08:58)
--- NOTE | 2017-01-16 16:22 | SOAPPROG ---
SOAP Progress Note Assessment/Plan: Assessment: Plan: 01/15/17 13:23 Gradual improvement. CCM. Will increase lithium to 600mg BID as this is patient's previous outpatient dose. Increase Abilify to 15mg due to ongoing psychosis. Will reconsider admission dx in favor of Schizoaffective D/o. 01/16/17 16:22 Remains activated, delusional. Will CCM, monitor. Subjective: Pt seen, discussed with staff. Reports feeling "ready to go." Discussed the possibility of him going to [facility] and he states he believes he is "already stable" and doesn't need to go there. I informed him that it is still a possibility, however. He is adamant that he won't take Prolixin. Wants to keep the meds the same. Remains pressured, tangential at times. Persecutory delusional system re: cults and gangs trying to harm him are unchanged. Objective: Vital Signs Temp Pulse Resp BP Pulse Ox 36.8 C 89 15 139/86 H 95 01/16/17 08:33 01/16/17 08:33 01/16/17 08:33 01/16/17 08:33 01/16/17 08:33 MSE: Moderately activated, coop., engaging. Affect is expansive, slightly elevated. Mood is "good." TP tangential at times. TC reveals continued persecutory delusions and IOR's. Denies SI/HI/. - Time Spent With Patient Time Spent With Patient: 25" ICD10 Worksheet Patient Problems: Problems Problem Status Onset Bipolar I, recurrent manic episode, severe with psychotic behavior Acute Avulsion fracture of ankle Acute
[2017-01-17] MEDS: LITHIUM CARBONATE ER 300 MG TAB PO SCH ×2 (08:41→20:21)
[2017-01-17] MEDS: MULTIVITAMINS 1 EACH TAB PO SCH (08:41)
[2017-01-17] MEDS: OMEGA-3 FATTY ACIDS 1,000 MG CAP PO SCH (08:41)
[2017-01-17] MEDS: ARIPiprazole 10 MG TAB PO SCH (08:41)
[2017-01-17] MEDS: CEPHALEXIN 500 MG CAP PO SCH ×2 (09:34→11:43)
--- NOTE | 2017-01-17 13:46 | SOAPPROG ---
SOAP Progress Note Assessment/Plan: Assessment: Plan: 01/15/17 13:23 Gradual improvement. CCM. Will increase lithium to 600mg BID as this is patient's previous outpatient dose. Increase Abilify to 15mg due to ongoing psychosis. Will reconsider admission dx in favor of Schizoaffective D/o. 01/16/17 16:22 Remains activated, delusional. Will [facility], monitor. 01/17/17 13:45 Significant improvement. CCM. Await [facility]'s opinion on appropriateness of [facility]. Subjective: Pt seen, discussed with staff. Reports feeling "really good." States he believes he is stable and able to go to . He states repeatedly that he has decided to take his oral medications and "will never stop them again." He refuses Maintena, however. Remains calm and cooperative with meds and therapies. Objective: Vital Signs Temp Pulse Resp BP Pulse Ox 36.3 C 63 12 141/79 H 94 01/17/17 06:14 01/17/17 06:14 01/17/17 06:14 01/17/17 06:14 01/17/17 06:14 MSE: Calm, coop, approp. Speech is normal. Affect is euthymic, stable, appropriate. Mood is "good." TP is linear. TC reveals little mention of delusional systems today. - Time Spent With Patient Time Spent With Patient: 25" ICD10 Worksheet Patient Problems: Problems Problem Status Onset Bipolar I, recurrent manic episode, severe with psychotic behavior Acute Avulsion fracture of ankle Acute
--- NOTE | 2017-01-17 20:38 | WOCRNPDOC ---
WOCRN Advanced Assessment Note - Skin Integrity Problem, Advanced Assess Right Lateral Ankle Dressing Type: Allevyn Life Dressing Description: Clean/Dry, Intact Exudate Amount: None Integumentary Issue Intervention: Dressing Changed Gabi Wound Tissue: Macerated (severely) Wound Bed Constitution: Loose Slough (100%) Wound Edges: Epithelizing, Attached Site Measurement - Head-to-Toe Length X Width X Depth (cm): 0.6x1.1x0.2 Skin Integrity Problem Comment: Two wounds present both coated in large amounts of silvasorb both fresh and dried. Both wounds were cleaned extensively and left open for 10 min to air out. Afterward the edges remained only mildly macerated and the majority of the slough was mechanically removed. The distal wound was 90% healed and no longer needed intervention. The larger and proximal wound had 90% granulation tissue and was epithelizing. A small amount of honey gel was applied to the wound bed and it was covered with a lukeomed pad. Orders were updated and education done with the patient and RN Gulshan about dressing changes and plan of care. Wound care will sign off.
[2017-01-18] MEDS: OMEGA-3 FATTY ACIDS 1,000 MG CAP PO SCH (09:06)
[2017-01-18] MEDS: ARIPiprazole 10 MG TAB PO SCH (09:06)
[2017-01-18] MEDS: LITHIUM CARBONATE ER 300 MG TAB PO SCH ×2 (09:07→20:08)
[2017-01-18] MEDS: MULTIVITAMINS 1 EACH TAB PO SCH (09:07)
[2017-01-18 10:26] LABS: LITHIUM 0.8 mEq/L (0.6-1.2)
[2017-01-18] MEDS ORDERED: ARIPIPRAZOLE (ABILIFY MAINTENA) 400 MG VIAL IM ONE (11:09)
[2017-01-18] MEDS ORDERED: TUBERCULIN (PPD) 5 TU/0.1 ML SYRINGE ID ONE (11:09)
--- NOTE | 2017-01-18 15:31 | SOAPPROG ---
SOAP Progress Note Assessment/Plan: Assessment: Plan: 01/15/17 13:23 Gradual improvement. CCM. Will increase lithium to 600mg BID as this is patient's previous outpatient dose. Increase Abilify to 15mg due to ongoing psychosis. Will reconsider admission dx in favor of Schizoaffective D/o. 01/16/17 16:22 Remains activated, delusional. Will [facility], monitor. 01/17/17 13:45 Significant improvement. CCM. Await [facility]'s opinion on appropriateness of [facility]. 01/18/17 15:32 Continued improvement. CCM. Likely d/c to [facility] tomorrow. Subjective: Pt seen, discussed with staff. Dr. Hill present for morning meeting to discuss case and later to interview pt with me. He is polite and engaging, states he will be compliant with meds and not elope. He demonstrates good insight into his illness and need for treatment. Agrees to a Maintena shot. Objective: Vital Signs Temp Pulse Resp BP Pulse Ox 36.3 C 93 16 142/78 H 96 01/18/17 08:48 01/18/17 08:48 01/18/17 08:48 01/18/17 08:48 01/18/17 08:48 MSE: Calm, coop. Affect is brighter, stable, approp. Laughs and jokes appropriately. Mood is "good." TP linear. TC reveals no mention of delusional systems. - Time Spent With Patient Time Spent With Patient: 25" - Pending Discharge Pending Discharge Within 24 Hours: No Pending Discharge Within 48 Hours: No ICD10 Worksheet Patient Problems: Problems Problem Status Onset Bipolar I, recurrent manic episode, severe with psychotic behavior Acute Avulsion fracture of ankle Acute
[2017-01-18 20:23] VITALS: O2SAT 97
[2017-01-19 06:27] VITALS: BP 154/98; PULSE 79; RESP 14; TEMP 97.8
[2017-01-19] MEDS: OMEGA-3 FATTY ACIDS 1,000 MG CAP PO SCH (08:10)
[2017-01-19] MEDS: LITHIUM CARBONATE ER 300 MG TAB PO SCH (08:11)
[2017-01-19] MEDS: ARIPiprazole 10 MG TAB PO SCH ×2 (08:11→08:13)
[2017-01-19] MEDS: MULTIVITAMINS 1 EACH TAB PO SCH (08:11)
--- NOTE | 2017-01-19 16:12 | BDS ---
[f rep st] BEHAVIORAL HEALTH DISCHARGE SUMMARY REASON FOR ADMISSION: Patient is a 46-year-old, male with history of schizoaffective disor william. He presented to the emergency department requesting treatment for cellulitis in his feet. He w as admitted to the medical floor for treatment of this and then transferred to our unit due to his ac [place] manic psychosis. He had recently been at [facility] under court-ordered medications and short- term certification, but had eloped from there 2 to 3 weeks prior to returning, had traveled to [facility] and then to [place], [place] and [place]. He had returned to [place] and then presented for the medical treatment. A full description of the events preceding admission can be found in his adm ission history dated 01/12/2017. ADMITTING DIAGNOSES: Bipolar 1 disorder, most recent episode manic, severe, with psychosis, chronic illness, recurrent illness, treatment noncompliance and homelessness. ADMISSION PHYSICAL EXAMINATION: Performed by Dr. Cain Bowden revealed cellulitis of his right an kle and the right distal fibula fracture. ADMITTING LABORATORY: No additional labs were drawn though a lithium level checked on 01/18/2017 was 0.8. HOSPITAL COURSE: Patient was [facility] on [facility] transfer of his short-term certification and court-ordered medications. He was pleasant, cooperative and engage d staff readily. He was, however, pressured, tangential and quite delusional. He spoke of being pur sued by gangs and cults and the ghost of Carlton Engle. He stated that he had to resolve this and talk to the FBI and was quite perseveratively focused on this. At first, he was agreeable to medications and then stated that he felt like the medications were dosed at too high a level. In fact, the leve ls that we were told and his medication reconciliation were somewhat high and the medications were de creased and then again titrated slightly. He was taking lithium and Abilify and initially was on 180 0 mg of lithium and 30 mg of Abilify. These were decreased to 600 mg and 10 mg respectively and then increased to 1200 mg and 15 mg, which were his previous outpatient doses. He tolerated these well w ith no side effects. A follow up level of lithium at 600 mg stable state was 0.8. The patient gradually improved throughout his hospitalization. He became less pressured and though h is delusions were fixed, he was able to focus on other things and they became significantly less of a n influence on his overall thinking and behaviors. He was compliant with his medicines throughout hi s stay and on the day prior to discharge, his outpatient Psychiatrist at [facility] and mar[place], Dr. Hill, visited and he was agreeable to Abilify Maintena. He was given 400 mg of Abil chucho Maintena IM on 01/18/2017 and tolerated this well. The patient's hospitalization was otherwise uncomplicated. He was cooperative with all treatments, w as pleasant and improved greatly. CONDITION ON DISCHARGE: Stable. His affect is euthymic, stable and appropriate. His thoughts were generally linear, and he was voicing none of his delusional beliefs. DISCHARGE MEDICATIONS: 1. [place] carbonate ER 600 mg twice daily. 2. Abilify in a crossover 15 mg p.o. daily. 3. [place]-3 fatty acids 2000 mg daily. 4. Multivitamin daily. DISCHARGE DIAGNOSES: Schizoaffective disorder, bipolar type, chronic with acute exacerbation, treatm ent noncompliance, chronic illness, recent relapse, homelessness, family conflicts. DISPOSITION: Patient left the hospital to go to [facility] with staff. FOLLOWUP: He is to follow up with Dr. Hill at [facility] on the day of discharge. LEGAL COURSE: Patient's short-term certification was transferred back to [facility] at the time of his discharge. /[id number]/MODL
== END 2017-01-19 10:19 | DRG 885 ==
LOC: BBEH 04:00
PROVIDERS: ADMIT Psychiatry & Neurology Behavioral Neurology & Neuropsychiatry; ATTEND Psychiatry & Neurology Behavioral Neurology & Neuropsychiatry
DX: F25.0 Schizoaffective disorder, bipolar type (principal); L03.115 Cellulitis of right lower limb; T43.506A Underdosing of unspecified antipsychotics and neuroleptics, initial encounter; B19.20 Unspecified viral hepatitis C without hepatic coma; Z91.14 Patient's other noncompliance with medication regimen; Z59.0 Homelessness; S82.401A Unspecified fracture of shaft of right fibula, initial encounter for closed fracture; F17.200 Nicotine dependence, unspecified, uncomplicated
CPT/HCPCS: J0401